=== PATIENT | male | born 2000 | race African-American/Black ===

== ENCOUNTER 2022-05-11 15:49 | Emergency (ER) | payer OTHER ==
[2022-05-11] MEDS ORDERED: Acetaminophen 500 MG TAB ONE (16:57)
== END 2022-05-11 19:12 | disposition home or self-care (01) ==
LOC: CSHERS 15:49
DX: S80.02XA Contusion of left knee, initial encounter (principal); S00.83XA Contusion of other part of head, initial encounter; V43.52XA Car driver injured in collision with other type car in traffic accident, initial encounter; W22.11XA Striking against or struck by driver side automobile airbag, initial encounter
CPT/HCPCS: 70486